=== PATIENT | female | born 1955 | race Caucasian/White ===

== ENCOUNTER → 2017-05-14 | Outpatient (CLI) | payer BC ==
--- NOTE | 2017-05-14 12:38 | RADIOLOGY IMAGING REPORT ---
FACILITY: [facility] [place] PATIENT NAME: Kasie Curry : 1955 MR: [id number] V: [id number] EXAM DATE: ORDERING PHYSICIAN: BELINDA CLANCY TECHNOLOGIST: Location: [facility] Patient: Kasie Curry : 1955 Visit/Account:[id number] Date of Sevice: 05/14/2017 LUMBAR SPINE 4 VIEWS Indication: Back pain., Comparison: None available FINDINGS: There are 5 lumbar type vertebral bodies. There is no acute osseous or acute alignment abnormality. There is mild levoscoliosis centered at L2-3. This is associated with moderate to severe degenerativ e disc space narrowing. Mild disc space narrowing is noted throughout the remainder of the spine. O blique view show no evidence of pars defect. There is moderate bilateral degenerative facet hypertro phy present at L5-S1. No spondylolisthesis is identified. The vertebral body heights appear well-maintained. IMPRESSION: 1. Moderate to severe degenerative disc space disease is present at L2-3 with an associated mild lev oscoliotic curvature. No acute abnormalities noted Report Dictated By: Ted Vasquez at 05/14/2017 12:33 PM Report E-Signed By: Ted Vasquez at 05/14/2017 12:35 PM WSN:[email or web address]
== END ==
LOC: RAD 10:11
PROVIDERS: ATTEND Chiropractor
DX: M51.36 Other intervertebral disc degeneration, lumbar region (principal); M43.9 Deforming dorsopathy, unspecified
CPT/HCPCS: 72120